=== PATIENT | female | born 1985 | race Caucasian/White ===

== ENCOUNTER 2018-09-03 07:00 | Inpatient (IN) | payer OTHER ==
[~2018-09-03] VITALS: Ht 165.1 cm; Wt 90.3 kg
[2018-09-03] MEDS ORDERED: PRENATAL FORMU1 EAC1 PO (12:27)
[2018-09-03] MEDS ORDERED: FOLIC ACID1 MG PO (12:27)
[2018-09-03] MEDS ORDERED: IRON325 MG PO (12:27)
[2018-09-06] MEDS ORDERED: TRAM1TAB98 PO (09:40)
== END 2018-09-06 13:09 | DRG 788 ==
LOC: LDR 11:27 → OB/GYN 20:37
PROVIDERS: Obstetrics & Gynecology
PROC: 4A1HXCZ Monitoring of Products of Conception, Cardiac Rate, External Approach (ICD-10-PCS; 2018-09-03)
PROC: 4A033R1 Measurement of Arterial Saturation, Peripheral, Percutaneous Approach (ICD-10-PCS; 2018-09-03)
PROC: 10D00Z1 Extraction of Products of Conception, Low, Open Approach (ICD-10-PCS; principal; 2018-09-03 18:00)
DX: O62.1 Secondary uterine inertia (principal); Z3A.39 39 weeks gestation of pregnancy; Z37.0 Single live birth

== ENCOUNTER 2021-03-21 09:30 | Inpatient (IN) | payer OTHER ==
[~2021-03-21] VITALS: Ht 165.1 cm; Wt 4.1 kg
[~2021-03-21 09:30] MED LIST: FOLIC ACID1 MG PO; IRON325 MG PO; PRENATAL FORMU1 EAC1 PO; TRAM1TAB98 PO
[2021-03-21] MEDS ORDERED: ATABEX DHA 200200 MG PO (11:41)
[2021-03-21] MEDS ORDERED: PEPCID AC10 MG PO (11:47)
[2021-03-30] MEDS ORDERED: PRENATAL CAPLE1 EAC1 PO (04:48)
[2021-03-30] MEDS ORDERED: FAMOTIDINE20 MG (11:37)
[2021-03-30] MEDS ORDERED: PROFERRIN-FORT1 EACH (11:37)
[2021-04-02] MEDS ORDERED: SIMETHICONE125 M1 PO (14:13)
[2021-04-02] MEDS ORDERED: PREPLUS CA-FE1 EACH PO (14:13)
[2021-04-02] MEDS ORDERED: SENOKOT8.6 M1 PO (14:13)
[2021-04-02] MEDS ORDERED: TRAMADOL HCL50 MG PO (14:15)
[2021-04-02] MEDS ORDERED: HYDROCORTISO453.6 G1 TOP (14:15)
== END 2021-04-02 15:45 | disposition home or self-care (01) | DRG 788 ==
LOC: OB/GYN 03-30 04:18 → LDR 03-30 04:18 → OB/GYN 03-30 08:03
PROVIDERS: ADMIT Obstetrics & Gynecology; ATTEND Obstetrics & Gynecology
PROC: 4A1HXFZ Monitoring of Products of Conception, Cardiac Rhythm, External Approach (ICD-10-PCS; 2021-03-30)
PROC: 10D00Z1 Extraction of Products of Conception, Low, Open Approach (ICD-10-PCS; principal; 2021-03-30 05:45)
DX: O34.211 Maternal care for low transverse scar from previous cesarean delivery (principal); Z3A.39 39 weeks gestation of pregnancy; Z37.0 Single live birth; Z20.822 Contact with and (suspected) exposure to COVID-19

== ENCOUNTER 2021-06-12 23:11 | Emergency (ER) | payer OTHER ==
[~2021-06-12] VITALS: Ht 172.7 cm; Wt 86.2 kg
[~2021-06-12 23:11] MED LIST changes: +ATABEX DHA 200200 MG PO; +FAMOTIDINE20 MG; +HYDROCORTISO453.6 G1 TOP; +PEPCID AC10 MG PO; +PRENATAL CAPLE1 EAC1 PO; +PREPLUS CA-FE1 EACH PO; +PROFERRIN-FORT1 EACH; +SENOKOT8.6 M1 PO; +SIMETHICONE125 M1 PO; +TRAMADOL HCL50 MG PO
== END 2021-06-13 01:03 | disposition home or self-care (01) ==
LOC: ER 23:11
DX: N61.0 Mastitis without abscess (principal); N64.4 Mastodynia; L53.8 Other specified erythematous conditions